=== PATIENT | male | born 1995 | race African-American/Black ===

== ENCOUNTER 2024-01-23 19:47 | Emergency (ER) | payer SELFPAY ==
[~2024-01-23] VITALS: Ht 177.8 cm; Wt 63.5 kg
[2024-01-23 20:01] VITALS: BP_SYST 125; PULSE 79; RESP 16; TEMP 97.2; O2SAT 98
[2024-01-23] MEDS: predniSONE 20 MG TABLET PO ONE (20:43)
[2024-01-23] MEDS ORDERED: ALBMDI INH (20:49)
[2024-01-23] MEDS ORDERED: PRED50TA PO (20:49)
[2024-01-23] MEDS ORDERED: [UNRECOGNIZED DRUG - CODE] INH (20:49)
[2024-01-23] MEDS ORDERED: BENZ100C92 PO (20:57)
[2024-01-23 21:00] VITALS: BP_SYST 125; PULSE 79; RESP 16; TEMP 97.2; O2SAT 98
== END 2024-01-23 21:00 | disposition home or self-care (01) ==
LOC: SED 19:47
DX: J45.901 Unspecified asthma with (acute) exacerbation (principal); Z79.899 Other long term (current) drug therapy; Z79.2 Long term (current) use of antibiotics
CPT/HCPCS: 99283; J7512